=== PATIENT | female | born 1950 | race Caucasian/White ===

== ENCOUNTER → 2017-04-12 | Outpatient (CLI) | payer OTHER ==
[~2017-04-12] MED LIST: ALPRAZOLAM 0.50.5 M1 PO; ATORVASTATIN CA40 MG PO; CHANTIX1 MG PO; COMPAZINE10 MG PO; COUMADIN 5 MG TA5 M1 PO; DESYREL50 MG PO; DILTIAZEM HCL30 MG PO; ENOXAPARIN60 MG/0.6 SQ; ETODOLAC500 MG PO; FELDENE20 MG PO; FIORINAL WITH1 EACH PO; FOLIC ACID1 MG PO; FOLIC ACID20 MG PO; FOSAMAX 70 MG T70 MG PO; LASIX 20 MG TAB20 MG PO; LISINOPRIL40 MG PO; MAXZIDE-25 MG1 EACH PO; METHOTREXATE 22.5 M1 PO; METHOTREXATE 22.5 MG PO; MIRAPEX1 MG PO; NEURONTIN 300300 M1 PO; NOLVADEX20 MG PO; NORCO 10-325 T1 EACH PO; OMEPRAZOLE 20 M20 MG PO; PANTOPRAZOLE SO40 M1 PO; PENTASA500 MG PO; ROPINIROLE HCL2 M1 PO; SERTRALINE HCL50 MG PO; SIMVASTATIN40 MG PO; TIZANIDINE HCL4 M1 PO; TRAZODONE HCL100 MG PO
== END ==
LOC: ULTRA 16:13
DX: M79.604 Pain in right leg (principal); M79.89 Other specified soft tissue disorders

== ENCOUNTER 2017-09-26 13:07 | Inpatient (IN) | payer OTHER ==
[~2017-09-26] VITALS: Ht 160 cm; Wt 84.8 kg
--- NOTE | ~2017-09-26 | HC ---
[facility] [place] [address] CONSULTATION Name: ALESHIA FRANCOIS Room #: 247-P ADM IN M.R.#: [id number] Admission: 09/26/17 Attend Phys: Sebastien Myers MD, Discharge: Date of : 48 Report #: [id number] THIS REPORT FOR: //name// CC: Sebastien Myers MD [facility] Kimberley Rubio MD DATE OF SERVICE: 09/27/2017 PULMONARY CONSULTATION REFERRING PROVIDER: Sebastien Myers MD, [facility] REASON FOR CONSULTATION: Abnormal CT scan of the chest. HISTORY OF PRESENT ILLNESS: Our group was asked to see the patient in consultation while hospitalized at [facility]. A pleasant 66-year-old woman with a past pulmonary history significant for tobacco abuse, but no other pulmonary disease that she is aware of, no prior need for inhaled therapy, no chronic respiratory symptoms, and no cough, does have significant esophageal reflux that is very severe and sometimes awakens her from sleep, presented for further evaluation of her vascular disease and was found to have significant coronary artery disease with significant left main coronary artery stenosis and requiring urgent bypass surgery. A CT scan of the chest done to evaluate for other pulmonary disease may be present despite a clear x-ray did show an 18 x 12 mm infiltrative process in the posterior portion of the right lower lobe. The patient is asymptomatic without any chest pain, weight loss, cough or fever. The patient has had intermittent GI symptoms of nausea, which she attributed to gallbladder until further evaluation suggested significant coronary artery disease. No recent antibiotics. No history of recurrent pneumonias. ALLERGIES: PENICILLINS. PAST MEDICAL HISTORY: 1. Significant coronary artery disease as described. 2. Peripheral vascular disease. 3. Emphysema noted on CT, severity not quantified. The patient not requiring any medications. 4. History of aortic stenosis. 5. History of DVT. 6. Rheumatoid arthritis, has been on methotrexate for about 5 years under the care of Dr. Zaire Concepcion. 7. Hypertension. 8. Prior mastectomy. [facility] [address] [place] [address] CONSULTATION Name: ALESHIA FRANCOIS Bossman Room #: 247-P [facility] IN .R.#: [id number] Admission: 09/26/17 Attend Phys: Sebastien Myers MD, Discharge: Date of : 48 Report #: [id number] SOCIAL HISTORY: Ex-smoker, quitting about 1 year ago. Lives independently. 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 FAMILY HISTORY: Negative for any pulmonary disease, but there is significant cardiovascular disease. REVIEW OF SYSTEMS: CONSTITUTIONAL: No fever, chills or sweats. ENT: No upper respiratory congestion, some rhinorrhea noted. CARDIOVASCULAR: As described in the HPI. GASTROINTESTINAL: Significant reflux. No abdominal pain. GENITOURINARY: No dysuria, no frequency or hematuria. INTEGUMENT: Denies any rash. MUSCULOSKELETAL: History of rheumatoid arthritis seems well controlled on methotrexate. PHYSICAL EXAMINATION: VITAL SIGNS: Afebrile, pulse 70s, respiratory rate 18, blood pressure 110/46, oxygen saturation 97% on room air. GENERAL: This is a pleasant, thin, elderly woman in no distress. HEENT: Clear oropharynx, Mallampati 1 airway. No thrush. NECK: Supple, no lymphadenopathy. LUNGS: Minimal basilar crackles on inspiration. No wheezes. CARDIOVASCULAR: Heart is regular, 2/6 systolic murmur best heard at the right sternal border. ABDOMEN: Soft, no masses, nontender. EXTREMITIES: Warm with no edema. LABORATORY DATA: White blood cell count 12,000; hemoglobin 10, hematocrit 29, platelet count 358. No significant eosinophilia. Sodium 138, potassium 4.4, chloride 103, bicarbonate 27, BUN 25, creatinine 1.1, glucose 106, albumin 3.3. CT scan of the chest as described; however, also findings on CT chest did show renal masses previously suggested a cyst, but seemed to be increased on this exam with high density material within the gallbladder suggesting the sludge or stones without findings of cholecystitis. IMPRESSION: 1. Right lower lobe infiltrative process. I suspect this is inflammatory in nature given her history of severe reflux, suspect this is aspiration. As discussed with Dr. Myers in the Cardiothoracic Surgery Service, typically would follow this after a course of antibiotics with repeat imaging in 4-6 weeks; however, given the urgent need for bypass surgery would cover with antibiotics at this time and have to follow postoperatively at some point in the future, would not delay surgery for these findings. These are likely inflammatory and not malignant that is why we would pursue further surgery as [address] [address] CONSULTATION Name: ALESHIA FRANCOIS Room #: 247-P ADM IN M.R.#: [id number] Admission: 09/26/17 Attend Phys: Sebastien Myers MD, Discharge: Date of : 48 Report #: [id number] warranted and we would treat her underlying severe esophageal reflux disease, which is likely contributing to this finding. 2. Severe coronary artery disease, awaiting coronary bypass grafting. 3. History of tobacco abuse with mild chronic obstructive pulmonary disease suggested by CT. 4. Possible gallbladder disease. 5. History of peripheral vascular disease. PLAN: As outlined above. We will follow along with you. Encourage incentive spirometry as well. <ELECTRONICALLY SIGNED> By: Yash Morgan MD 09/30/17 1535 1237 1956 Yash Morgan MD /nt
--- NOTE | ~2017-09-26 | CNG ---
[facility] [place] [address] CYTO-NONGYN REPORT PROCEDURE Name: CHARLENE CHARLES Room #: 247-P ADM IN M.R.#: [id number] Admission: 09/26/17 Date of : 48 Discharge: Report #: [id number] Path Case #: [id number] CYTOPATHOLOGY REPORT COLLECTION DATE: 09/30/2017 RECEIVED DATE: 10/01/2017 SUBMITTING PHYS: Dr. Tish York OTHER PHYS: Dr. Sebastien Lay CLINICAL HISTORY: Unstable angina, Left main occlusion, CAD SPECIMEN(S) RECEIVED: A.Sputum * * * * * * * * * * * * FINAL DIAGNOSIS: A. Sputum: - No malignant cells identified. Pulmonary macrophages and rare squamous cells are present. PATHOLOGIST: Beatrice Blevins M.D. REPORT ELECTRONICALLY SIGNED BY: Beatrice Blevins M.D. DATE/TIME: 10/02/2017 14:45 * * * * * * * * * * * * GROSS PATHOLOGY: A. Sputum: The specimen is submitted unfixed, labeled "Charlene Charles". Received by the Cytology Department is two mL of cloudy colorless fluid. One ThinPrep slide was prepared. (mm 10.01.2017) PLUMBING WAREHOUSE HELPER(S): AMELIA Madrid(ASCP) INITIAL CPT CODE(S): A; 52583 Professional services performed by [facility] at [facility] [address], [place] [address] Technical services performed by [facility] at [address] [place] [address]., [address], [place] [address]. [facility] [address] [place] [address], [facility] [address] [place] [address] PHONE: [phone] [facility] [address] [address] CYTO-NONGYN REPORT PROCEDURE Name: CHARLENE CHARLES Room #: 247-P ADM IN M.R.#: [id number] Admission: 09/26/17 Date of : 48 Discharge: Report #: [id number] Path Case #: [id number] DIRECTOR: Gorge Flores M.D. * * * END OF REPORT * * *
--- NOTE | ~2017-09-26 | EKG ---
[address] [address] ELECTROCARDIOGRAM REPORT Name: ALESHIA FRANCOIS Room #: 247-P [facility] IN M.R.#: [id number] Admission: 09/26/17 Attend Phys: Sebastien Myers MD, Discharge: Date of : 48 Report #: [id number] THIS REPORT FOR: //name// [facility] Test Date: 2017-09-30 Test Time: 14:35:53 Pat Name: ALESHIA FRANCOIS Department: Room: [facility] Gender: F Chief Clinical Officer: jlambertz : 1950 Requested By: Tania Sapp Order Number: [id number] MD: Thomas Lanier Measurements Intervals [place] Rate: 79 P: 70 [place]: 187 QRS: 63 QRSD: 128 T: 53 QT: 433 QTc: 497 Interpretive Statements Sinus rhythm Atrial premature complexes Right bundle branch block Compared to ECG 03/31/2008 06:43:45 Atrial premature complex(es) now present Right bundle-branch block now present Electronically Signed On 10-01-2017 7:50:47 VESSEL BUILDER by Thomas Lanier [email or web address] <ELECTRONICALLY SIGNED> By: Thomas Lanier MD, FACC 10/01/17 0750 1435 1435 Thomas Lanier MD, [facility] /EPI
--- NOTE | ~2017-09-26 | H ---
[facility] [place] [address] HISTORY AND PHYSICAL Name: ALESHIA FRANCOIS Room #: 206-P [facility] IN M.R.#: [id number] Admission: 09/26/17 Attend Phys: Sebastien Myers MD, Discharge: 10/07/17 Date of : 48 Report #: [id number] THIS REPORT FOR: //name// CC: Sebastien Lay MD DATE OF SERVICE: 09/26/2017 HISTORY OF PRESENT ILLNESS: The patient is a 66-year-old female who I transferred here today after having cardiac catheterization performed at [facility]. She has been having some progressive chest pain and shortness of breath. It was unclear of the etiology of this. He has a history of peripheral vascular disease with an SMA and celiac stents placed in 11/2016. Saw her primary care doctor a few weeks ago, who sent her over for further evaluation regarding this recurrent chest pain. Multiple risk factors for coronary disease. She also has mild to moderate aortic valve stenosis, calculated at 1.2 cm2 a month ago. That echo Doppler report is here and also readily had in the incident system here. This was performed at [facility]. LV function is preserved. There is a minimal gradient across the aortic valve, a mean of 12 mmHg. Subsequently, taken to the Catheterization Lab today. Dr. Lay evaluated the peripheral vascular stents, which did not need any re-intervention. Cardiac catheterization revealed a high-grade calcified large tight lesion in the left main. It was difficult to differentiate this with the catheter, but eventually was noted to be large segment of calcified narrowing, probably in the 80-90% range. The other vessels were well preserved. LV function was preserved. She had chest pain with injections and then this resolved with IV Lopressor and nitro. She had a severe episode of chest pain this morning, which was at rest, which did not get relieved until she took her Cardizem. Interestingly, she has had some accelerating symptoms here. MEDICATIONS: Have been Xanax, baby aspirin, Lipitor 40, Fiorinal p.r.n. Cardizem 30 mg p.r.n., gabapentin, Wellpinit, Levsin, omeprazole, Feldene, Protonix, Compazine, Zanaflex p.r.n., trazodone at night, Maxzide 37.5/25, and Plavix 75 a day for the peripheral stent. PAST MEDICAL HISTORY: Positive for the peripheral vascular disease, documented now currently coronary disease; COPD; carotid disease, repeated today with mild irregularities. That report is on the chart. SMA bare-metal stent. Moderate celiac and CUATE disease looked at today; moderate aortic valve stenosis, asymptomatic; hypertension; hypercholesterolemia; history of DVT; rheumatoid; mastectomy; tonsillectomy; total abdominal hysterectomy. SOCIAL HISTORY: She lives independently, accompanied by a brother and sister. She is a former heavy tobacco user until recently. No children. Not . [facility] [address] [place] [address] HISTORY AND PHYSICAL Name: ALESHIA FRANCOIS Room #: 206-P [facility] IN M.R.#: [id number] Admission: 09/26/17 Attend Phys: Sebastien Myers MD, Discharge: 10/07/17 Date of : 48 Report #: [id number] FAMILY HISTORY: Mother had a stroke. Father had coronary artery disease prematurely. ALLERGIES: PENICILLIN AND AMOXICILLIN. REVIEW OF SYSTEMS: Essentially negative except for some intermittent bowel issues. LABORATORY DATA: Sodium 138, potassium 4.4, creatinine 1.1, GFR 50. Liver function tests are normal. H and H is 9.9/29.1, white count 11.8, platelets 358. Hemoglobin A1c was pending. UA looks unremarkable. Chest x-ray: No acute process. PHYSICAL EXAMINATION: GENERAL: She is pleasant, alert. She is pain free. VITAL SIGNS: Blood pressure 114/60. HEENT: Eyes reveal xanthelasmas. Pharynx is clear. NECK: Shows preserved upstrokes without JVD or bruits. LUNGS: Clear. CARDIOVASCULAR: Regular rate and rhythm, S1, S2. ABDOMEN: Soft. No HSM, abdominal bruit. EXTREMITIES: Reveal no edema. Distal pulses were intact. NEUROLOGIC: Nonfocal. SKIN: Warm and dry without xanthoma or ulcer. MUSCULOSKELETAL: No gross joint deformity. ASSESSMENT: 1. Coronary artery disease with high-grade left main disease, unstable angina (currently pain free). 2. Peripheral vascular disease with history of superior mesenteric artery stent. 3. Chronic obstructive pulmonary disease, prior tobacco use. 4. Hypertension. 5. Hypercholesterolemia. 6. Rheumatoid. 7. Recent cataract surgery. 8. Mild to moderate aortic valve stenosis. RECOMMENDATIONS AND PLAN: CV surgical consultation. Carotid Dopplers, minimal plaquing, repeated today. was done one month ago at [facility] that reported also on the chart. CV Surgery is having patient going to hold off on surgery due to Plavix usage and plan on operation after the weekend. She is pain free, on no nitrites right now. She had severe headache from nitro that [facility] [address] [place] [address] HISTORY AND PHYSICAL Name: ALESHIA FRANCOIS Room #: 206-P DIS IN .R.#: [id number] Admission: 09/26/17 Attend Phys: Sebastien Myers MD, Discharge: 10/07/17 Date of : 48 Report #: [id number] was given earlier. We will continue with beta-adrian and statin. Holding aspirin and Plavix. There are ophthalmologic eye drops. <ELECTRONICALLY SIGNED> By: Sebastien Myers MD, FACC 10/14/17 1427 1934 35 Sebastien Myers MD, FACC /nt
--- NOTE | ~2017-09-26 | EKG ---
[place] [address] [facility] [place] [address] ELECTROCARDIOGRAM REPORT Name: ALESSANDROALESHIA Keita Room #: 247- ADM IN M.R.#: [id number] Admission: 09/26/17 Attend Phys: Sebastien Myers MD, Discharge: Date of : 48 Report #: [id number] THIS REPORT FOR: //name// [facility] Test Date: 2017-10-01 Test Time: 06:15:25 Pat Name: ALESHIA FRANCOIS Department: Room: [facility] Gender: F Etcher Enameling: BHARATH : 1950 Requested By: Tania Sapp Order Number: [id number] MD: Thomas Lanier Measurements Intervals [place] Rate: 91 P: 20 IA: 135 QRS: 15 QRSD: 82 T: 65 QT: 369 QTc: 455 Interpretive Statements Sinus rhythm Diffuse ST elevation consider postoperative pericarditis Compared to ECG 03/31/2008 06:43:45 ST segment abnormality is now present Electronically Signed On 10-01-2017 7:59:10 LONG WALL MINING MACHINE TENDER by Thomas Lanier [email or web address] <ELECTRONICALLY SIGNED> By: Thomas Lanier MD, [facility] 10/01/17 0759 0615 0615 Thomas Lanier MD, [facility] /EPI
[2017-09-26 15:04] VITALS: BP 114/51
[2017-09-26 17:45] LABS: ABSOLUTE NEUTROPHILS 9.4 thou/uL (1.4-8.2); BASOPHILS 0.7 % (0.0-2.0); EOSINOPHILS 1.7 % (0.0-3.0); HEMATOCRIT 29.1 % (37.0-47.0); HEMOGLOBIN 9.9 gm/dL (12.0-15.0); LYMPHOCYTES 9.9 % (24.0-44.0); MCH 33.9 pg (26.0-34.0); MCV 99.6 fL (80.0-100.0); MONOCYTES 7.9 % (1.0-8.0); PLATELET COUNT 358 thou/uL (150-400); POLYS 79.8 % (36.0-66.0); RBC 2.92 mil/uL (4.20-5.00); RDW 14.6 % (10.5-14.5); WBC 11.8 thou/uL (4.0-11.0)
[2017-09-26 17:51] LABS: CALCIUM 9.3 mg/dL (8.5-10.1); CREATININE 1.1 mg/dL (0.6-1.0); POTASSIUM 4.4 mmol/L (3.5-5.1)
[2017-09-26 17:57] LABS: ALBUMIN 3.3 g/dL (3.4-5.0); TOTAL BILIRUBIN 0.2 mg/dL (<0.1-1.0); TOTAL PROTEIN 6.8 g/dL (6.4-8.2)
[2017-09-26 18:11] LABS: URINE BILIRUBIN NEGATIVE (Negative); URINE BLOOD 3+ (Negative); URINE CLARITY CLEAR; URINE COLOR YELLOW; URINE GLUCOSE-RANDOM* NEGATIVE (Negative); URINE KETONES NEGATIVE (Negative); URINE LEUKOCYTES-REFLEX NEGATIVE (Negative); URINE NITRITE-REFLEX NEGATIVE (Negative); URINE PROTEIN (DIPSTICK) NEGATIVE (Negative); URINE SPECIFIC GRAVITY <= 1.005 (1.005-1.035); URINE UROBILINOGEN 0.2 E.U./dl (0.2-1.0)
[2017-09-26 18:18] LABS: SQUAMOUS 0-3 Few /LPF (0-3); URINE WBC-REFLEX 0-5 Rare /HPF (0-5)
[2017-09-26 18:19] LABS: BACTERIA-REFLEX None Seen /HPF (None Seen); CASTS None Seen /LPF (None Seen); CRYSTALS None Seen /LPF (None Seen); URINE RBC 0-2 Rare /HPF (0-2)
[2017-09-26 20:05] VITALS: BP 126/64
[2017-09-26 23:20] VITALS: BP 115/55
[2017-09-27 04:11] LABS: GLYCOHEMOGLOBIN (HGB A1C) 5.6 % (4.8-5.6)
[2017-09-27 05:08] VITALS: BP 119/62
[2017-09-27 07:22] VITALS: BP 114/50
[2017-09-27 11:23] VITALS: BP 110/46
[2017-09-27 15:19] VITALS: BP 118/42
[2017-09-27 19:18] VITALS: BP 114/54
[2017-09-28 04:08] VITALS: BP 111/50
[2017-09-28 07:17] VITALS: BP 111/50
[2017-09-28 11:06] VITALS: BP 106/49
[2017-09-28 15:30] VITALS: BP 107/52
[2017-09-28 19:09] VITALS: BP 112/59
[2017-09-29 04:16] VITALS: BP 108/50
[2017-09-29 08:55] VITALS: BP 104/48
[2017-09-29 12:22] VITALS: BP 109/52
[2017-09-29 21:08] VITALS: BP 122/68
[2017-09-30] VITALS (7 sets, daily range): BP systolic 83–138; BP diastolic 49–71
[2017-09-30 06:42] LABS: HEMATOCRIT 30.9 % (37.0-47.0); HEMOGLOBIN 10.6 gm/dL (12.0-15.0); MCH 33.8 pg (26.0-34.0); MCHC 34.3 g/dL (28.0-37.0); MCV 98.5 fL (80.0-100.0); RBC 3.14 mil/uL (4.20-5.00); RDW 14.5 % (10.5-14.5); WBC 10.4 thou/uL (4.0-11.0)
[2017-09-30 07:06] LABS: APTT 26.1 Seconds (24.5-32.8); PROTIME 10.1 Seconds (9.3-11.4)
[2017-09-30 07:16] LABS: ALBUMIN 3.6 g/dL (3.4-5.0); CALCIUM 9.2 mg/dL (8.5-10.1); CREATININE 1.2 mg/dL (0.6-1.0); MAGNESIUM 2.1 mg/dL (1.8-2.4); TOTAL BILIRUBIN 0.4 mg/dL (<0.1-1.0); TOTAL PROTEIN 7.6 g/dL (6.4-8.2)
[2017-09-30 12:36] LABS: RBC 1.91 mil/uL (4.20-5.00)
[2017-09-30 12:37] LABS: MCHC 33.2 g/dL (28.0-37.0); MCV 99.4 fL (80.0-100.0); RDW 14.3 % (10.5-14.5); WBC 14.7 thou/uL (4.0-11.0)
[2017-09-30 12:40] LABS: HEMOGLOBIN 6.3 gm/dL (12.0-15.0)
[2017-09-30 12:50] LABS: FIBRINOGEN 202.9 mg/dL (210-360); INR 1.2; PROTIME 12.6 Seconds (9.3-11.4)
[2017-09-30 13:08] LABS: POC BE 1 mmol/L (-2.0 to +3.0); POC CA IONIZED 6.6 mg/dL (4.5-5.3); POC GLUCOSE 130 mg/dL (70-99); POC HCO3 24.3 mmol/L (22.0-26.0); POC HEMOGLOBIN 6.1 g/dL (12.0-15.0); POC POTASSIUM 4.4 mmol/L (3.5-5.1); POC SODIUM 137 mmol/L (136-145); POC pCO2 34.1 mmHg (35.0-45.0); POC pH 7.461 (7.360-7.450)
[2017-09-30 13:08] LABS: POC BE 1 mmol/L (-2.0 to +3.0); POC CA IONIZED 6.6 mg/dL (4.5-5.3); POC GLUCOSE 129 mg/dL (70-99); POC HCO3 25.2 mmol/L (22.0-26.0); POC HEMOGLOBIN 5.8 g/dL (12.0-15.0); POC POTASSIUM 4.2 mmol/L (3.5-5.1); POC SODIUM 134 mmol/L (136-145); POC pCO2 36.5 mmHg (35.0-45.0); POC pH 7.447 (7.360-7.450)
[2017-09-30 13:08] LABS: POC BE 0 mmol/L (-2.0 to +3.0); POC CA IONIZED 4.5 mg/dL (4.5-5.3); POC GLUCOSE 103 mg/dL (70-99); POC HCO3 24.8 mmol/L (22.0-26.0); POC HEMOGLOBIN 8.8 g/dL (12.0-15.0); POC SODIUM 135 mmol/L (136-145); POC pCO2 37.6 mmHg (35.0-45.0); POC pH 7.428 (7.360-7.450)
[2017-09-30 13:08] LABS: POC BE -1 mmol/L (-2.0 to +3.0); POC CA IONIZED 5.9 mg/dL (4.5-5.3); POC GLUCOSE 90 mg/dL (70-99); POC HCO3 23.7 mmol/L (22.0-26.0); POC HEMOGLOBIN 6.8 g/dL (12.0-15.0); POC POTASSIUM 3.7 mmol/L (3.5-5.1); POC SODIUM 136 mmol/L (136-145); POC pCO2 37.1 mmHg (35.0-45.0); POC pH 7.414 (7.360-7.450)
[2017-09-30 13:08] LABS: POC BE -6 mmol/L (-2.0 to +3.0); POC CA IONIZED 3.8 mg/dL (4.5-5.3); POC GLUCOSE 135 mg/dL (70-99); POC HCO3 19.7 mmol/L (22.0-26.0); POC HEMOGLOBIN 7.5 g/dL (12.0-15.0); POC POTASSIUM 5.2 mmol/L (3.5-5.1); POC SODIUM 133 mmol/L (136-145); POC pH 7.372 (7.360-7.450)
[2017-09-30 13:08] LABS: POC BE -2 mmol/L (-2.0 to +3.0); POC CA IONIZED 3.7 mg/dL (4.5-5.3); POC GLUCOSE 139 mg/dL (70-99); POC HCO3 22.9 mmol/L (22.0-26.0); POC HEMOGLOBIN 6.5 g/dL (12.0-15.0); POC POTASSIUM 5.1 mmol/L (3.5-5.1); POC SODIUM 131 mmol/L (136-145); POC pH 7.399 (7.360-7.450)
[2017-09-30 13:08] LABS: POC BE 0 mmol/L (-2.0 to +3.0); POC CA IONIZED 4.6 mg/dL (4.5-5.3); POC GLUCOSE 119 mg/dL (70-99); POC HCO3 24.5 mmol/L (22.0-26.0); POC HEMOGLOBIN 7.8 g/dL (12.0-15.0); POC POTASSIUM 3.7 mmol/L (3.5-5.1); POC SODIUM 136 mmol/L (136-145); POC pCO2 36.8 mmHg (35.0-45.0); POC pH 7.432 (7.360-7.450)
[2017-09-30 13:08] LABS: POC BE -2 mmol/L (-2.0 to +3.0); POC CA IONIZED 4.1 mg/dL (4.5-5.3); POC GLUCOSE 145 mg/dL (70-99); POC HCO3 23.6 mmol/L (22.0-26.0); POC HEMOGLOBIN 6.8 g/dL (12.0-15.0); POC POTASSIUM 4.4 mmol/L (3.5-5.1); POC SODIUM 135 mmol/L (136-145); POC pCO2 44.4 mmHg (35.0-45.0); POC pH 7.333 (7.360-7.450)
[2017-09-30 13:56] LABS: HEMATOCRIT 23.5 % (37.0-47.0); HEMOGLOBIN 7.8 gm/dL (12.0-15.0); MCH 32.9 pg (26.0-34.0); MCHC 33.2 g/dL (28.0-37.0); RBC 2.37 mil/uL (4.20-5.00); RDW 14.3 % (10.5-14.5); WBC 21.1 thou/uL (4.0-11.0)
[2017-09-30 14:07] LABS: APTT 28.8 Seconds (24.5-32.8); INR 1.1; PROTIME 11.6 Seconds (9.3-11.4)
[2017-09-30 14:08] LABS: CALCIUM 9.9 mg/dL (8.5-10.1); CREATININE 1.1 mg/dL (0.6-1.0); MAGNESIUM 2.8 mg/dL (1.8-2.4); POTASSIUM 3.9 mmol/L (3.5-5.1)
[2017-09-30 15:13] LABS: BE(vivo) -4.1 mmol/L (-2 to +3); HCO3 21.3 mmol/L (22.0-26.0); PCO2 40.2 mmHg (35.0-45.0); PO2 123.3 mmHg (80.0-100.0); pH 7.342 (7.360-7.450); sO2 98.3 % (92.0-98.0)
[2017-09-30 17:49] LABS: BE(vivo) -4.2 mmol/L (-2 to +3); HCO3 19.9 mmol/L (22.0-26.0); PCO2 33.3 mmHg (35.0-45.0); PO2 141.9 mmHg (80.0-100.0); pH 7.395 (7.360-7.450); sO2 98.8 % (92.0-98.0)
[2017-09-30 18:21] LABS: BE(vivo) -4.7 mmol/L (-2 to +3); HCO3 20.4 mmol/L (22.0-26.0); PO2 127.8 mmHg (80.0-100.0); pH 7.348 (7.360-7.450); sO2 98.4 % (92.0-98.0)
[2017-09-30 20:21] LABS: BE(vivo) -3.7 mmol/L (-2 to +3); HCO3 21.6 mmol/L (22.0-26.0); PCO2 40.3 mmHg (35.0-45.0); PO2 94.1 mmHg (80.0-100.0); pH 7.348 (7.360-7.450); sO2 96.9 % (92.0-98.0)
[2017-10-01] VITALS (16 sets, daily range): BP systolic 87–112; BP diastolic 37–65
[2017-10-01 05:54] LABS: HEMATOCRIT 28.8 % (37.0-47.0); HEMOGLOBIN 9.6 gm/dL (12.0-15.0); MCH 32.4 pg (26.0-34.0); MCHC 33.3 g/dL (28.0-37.0); MCV 97.2 fL (80.0-100.0); RBC 2.96 mil/uL (4.20-5.00); RDW 15.3 % (10.5-14.5); WBC 20.4 thou/uL (4.0-11.0)
[2017-10-01 05:58] LABS: CALCIUM 9.5 mg/dL (8.5-10.1); CREATININE 1.2 mg/dL (0.6-1.0); MAGNESIUM 2.3 mg/dL (1.8-2.4); POTASSIUM 4.3 mmol/L (3.5-5.1)
[2017-10-02] VITALS (22 sets, daily range): BP systolic 74–109; BP diastolic 46–65
[2017-10-02 04:28] LABS: CALCIUM 8.3 mg/dL (8.5-10.1); CREATININE 1.2 mg/dL (0.6-1.0); POTASSIUM 4.3 mmol/L (3.5-5.1)
[2017-10-02 05:17] LABS: HEMATOCRIT 25.2 % (37.0-47.0); HEMOGLOBIN 8.4 gm/dL (12.0-15.0)
[2017-10-03] VITALS (9 sets, daily range): BP systolic 94–117; BP diastolic 42–81
[2017-10-03 05:36] LABS: HEMATOCRIT 22.6 % (37.0-47.0); HEMOGLOBIN 7.6 gm/dL (12.0-15.0)
[2017-10-03 05:55] LABS: CALCIUM 7.6 mg/dL (8.5-10.1); CREATININE 0.9 mg/dL (0.6-1.0); MAGNESIUM 1.8 mg/dL (1.8-2.4); POTASSIUM 3.8 mmol/L (3.5-5.1)
[2017-10-04 00:01] VITALS: BP 112/61
[2017-10-04 04:41] VITALS: BP 99/51
[2017-10-04 04:51] LABS: HEMATOCRIT 25.4 % (37.0-47.0); HEMOGLOBIN 8.8 gm/dL (12.0-15.0)
[2017-10-04 05:08] LABS: CALCIUM 8.1 mg/dL (8.5-10.1); POTASSIUM 3.9 mmol/L (3.5-5.1)
[2017-10-04] MEDS ORDERED: ASPIRIN EC325 M1 PO (11:45)
[2017-10-04 13:25] VITALS: BP 114/55
[2017-10-04 16:31] VITALS: BP 132/55
[2017-10-05 04:22] VITALS: BP 96/51
[2017-10-05 07:29] VITALS: BP 90/59
[2017-10-05 11:10] VITALS: BP 105/53
[2017-10-05 15:09] VITALS: BP 113/58
[2017-10-05 20:15] VITALS: BP 110/52
[2017-10-06 04:17] VITALS: BP 102/58
[2017-10-06 07:40] VITALS: BP 109/57
[2017-10-06 11:40] VITALS: BP 117/61
[2017-10-06 16:05] VITALS: BP 89/48
[2017-10-06 19:59] VITALS: BP 119/53
[2017-10-07 03:45] VITALS: BP 119/75
[2017-10-07 08:00] VITALS: BP 118/59
[2017-10-07] MEDS ORDERED: LOPRESSOR25 PO (11:20)
[2017-10-07] MEDS ORDERED: PACERONE 200 M200 M1 PO (11:20)
[2017-10-07 12:00] VITALS: BP 116/44
[2017-10-07 15:13] VITALS: BP 114/55
== END 2017-10-07 17:57 | disposition home health service (06) | DRG 235 ==
LOC: 2N 13:07 → TBA 09-30 07:24 → ICU 09-30 13:58 → 2N 10-03 13:29 → ENTRNSPT 10-07 17:20 → 2N 10-07 17:57
PROVIDERS: Internal Medicine Cardiovascular Disease; Internal Medicine Pulmonary Disease; Nurse Practitioner; Thoracic Surgery (Cardiothoracic Vascular Surgery)
PROC: 02100Z9 Bypass Coronary Artery, One Artery from Left Internal Mammary, Open Approach (ICD-10-PCS; principal; 2017-09-30)
PROC: 021009W Bypass Coronary Artery, One Artery from Aorta with Autologous Venous Tissue, Open Approach (ICD-10-PCS; principal; 2017-09-30)
PROC: 30233N1 Transfusion of Nonautologous Red Blood Cells into Peripheral Vein, Percutaneous Approach (ICD-10-PCS; 2017-09-30)
PROC: 03BC0ZZ Excision of Left Radial Artery, Open Approach (ICD-10-PCS; 2017-09-30)
PROC: 5A1221Z Performance of Cardiac Output, Continuous (ICD-10-PCS; 2017-09-30)
DX: I25.110 Atherosclerotic heart disease of native coronary artery with unstable angina pectoris (principal); J69.0 Pneumonitis due to inhalation of food and vomit; D62 Acute posthemorrhagic anemia; J98.11 Atelectasis; J90 Pleural effusion, not elsewhere classified; I73.9 Peripheral vascular disease, unspecified; M06.9 Rheumatoid arthritis, unspecified; J43.9 Emphysema, unspecified; I10 Essential (primary) hypertension; E78.00 Pure hypercholesterolemia, unspecified; I35.0 Nonrheumatic aortic (valve) stenosis; E78.5 Hyperlipidemia, unspecified; E66.9 Obesity, unspecified; I65.29 Occlusion and stenosis of unspecified carotid artery; D64.9 Anemia, unspecified; K21.9 Gastro-esophageal reflux disease without esophagitis; R73.9 Hyperglycemia, unspecified; I48.91 Unspecified atrial fibrillation; Z86.718 Personal history of other venous thrombosis and embolism; Z87.891 Personal history of nicotine dependence; Z90.710 Acquired absence of both cervix and uterus; Z88.1 Allergy status to other antibiotic agents; Z98.42 Cataract extraction status, left eye; Z90.11 Acquired absence of right breast and nipple; Z88.0 Allergy status to penicillin; Z95.5 Presence of coronary angioplasty implant and graft; Z79.899 Other long term (current) drug therapy; Z82.49 Family history of ischemic heart disease and other diseases of the circulatory system; Z82.3 Family history of stroke; Z68.33 Body mass index [BMI] 33.0-33.9, adult
CPT/HCPCS: 10078; 10081; 10797; 47000; 47001; 47002; 47297; 48888; 50010; 50249; 50409; 50456; 50497; 50668; 51301; 52131; 52190; 52259; 52314; 53327; 53358; 54118; 56524; 56525; 56526; 56527; 56528; 56529; 56531; 56534; 56639; 56668; 56760; 56898; 57093; 62110; 62950; 64029; 65002; 65003; 65020; 65043; 65045; 65090; 83006

== ENCOUNTER → 2017-10-23 | Outpatient (CLI) | payer OTHER ==
[~2017-10-23] MED LIST changes: +ASPIRIN EC325 M1 PO; +DEMADEX20 MG PO; +EFFIENT10 MG PO; +LOPRESSOR25 PO; +PACERONE 200 M200 M1 PO
== END ==
LOC: RAD 12:29
DX: Z95.1 Presence of aortocoronary bypass graft (principal)

== ENCOUNTER 2018-03-05 06:32 | Observation (INO) | payer OTHER ==
[~2018-03-05] VITALS: Ht 162.6 cm; Wt 86.8 kg
--- NOTE | ~2018-03-05 | D ---
[facility] [place] [address] DISCHARGE SUMMARY Name: ALESHIA FRANCOIS Room #: 211-P [facility] M.R.#: [id number] Admission: 03/05/18 Attend Phys: Sebastien Myers MD, Discharge: Date of : 48 Report #: [id number] THIS REPORT FOR: //name// CC: Sebastien Lay MD HOSPITAL COURSE: The patient is a 67-year-old female who is readmitted for intervention into a left main. Had a failed FLORES to LAD graft and a failed radial graft to the OM that surgery was 2 years previously. These were not amenable to intervention. The FLORES became atretic and had a high-grade anastomotic lesion. Significant calcification of the left main. Dr. Mays performed a Rotablator procedure for the initial layer of calcium and then dilated and stented with a 3.5 medicated stent that was taken up to approaching 4.0 mm in size. An excellent result was obtained on that left main. The mid LAD lesion was then dilated and stented and that was a site of the anastomosis, which may have been a stitch, difficult to know and placement of a 2.25 x 14 Resolute drug-eluting stent, postdilated to 2.4 mm in size. The initial Resolute in the left main was a 3.5 x 12 mm and that was postdilated with a 3.8-3.9. Bivalirudin was utilized for that. She will be discharged on aspirin and prasugrel generically, gabapentin 300 mg at bedtime, Mirapex, trazodone at bedtime, Protonix 40 mg, folic acid, tizanidine, metoprolol tartrate 25 mg b.i.d., torsemide 20 mg a day, prasugrel 10 mg a day . No lifting for 48 hours. No lying in tub, Jacuzzi or brito for a week. No MRI or dental work for 3 months. Followup is scheduled in 3 months in the office. Expect significant improvement in her symptoms. DISCHARGE DIAGNOSES: 1. Coronary artery disease with successful Rotablator, stent procedure to a highly calcified left main due to failed prior grafts, moderate disease remain in the [place] circ and right coronary artery. 2. Hypertension. 3. Hypercholesterolemia. 4. History of recurrent deep venous thrombosis. 5. Rheumatoid arthritis. Thank you for asking me to assist in the care of this patient. By: 0912 0931 Sebastien Myers MD, FACC /nt
--- NOTE | ~2018-03-05 | EKG ---
[address] [address] ELECTROCARDIOGRAM REPORT Name: ALESHIA FRANCOIS Room #: [address] [place] [address]#: [id number] Admission: 03/05/18 Attend Phys: Sebastien Myers MD, Discharge: 03/06/18 Date of : 48 Report #: [id number] THIS REPORT FOR: //name// [facility] Test Date: 2018-03-06 Test Time: 06:23:11 Pat Name: ALESHIA FRANCOIS Department: Room: [facility] Gender: F Medical Legal Investigator: : 1950 Requested By: Lee Mays Order Number: [id number] MD: Thomas Lanier Measurements Intervals [place] Rate: 61 P: 46 [place]: 216 QRS: 39 QRSD: 98 T: 75 QT: 440 QTc: 444 Interpretive Statements Sinus rhythm Borderline prolonged VA interval Baseline wander in lead(s) V6 Compared to ECG 03/05/2018 07:01:47 No significant changes Electronically Signed On 03-07-2018 8:44:08 CDT by Thomas Lanier [email or web address] <ELECTRONICALLY SIGNED> By: Thomas Lanier MD, [facility] 03/07/18 0844 0623 0623 Thomas Lanier MD, [facility] /EPI
--- NOTE | ~2018-03-05 | EKG ---
[address] [address] ELECTROCARDIOGRAM REPORT Name: ALESHIA FRANCOIS Room #: [facility]#: [id number] Admission: 03/05/18 Attend Phys: Sebastien Myers MD, Discharge: Date of : 48 Report #: [id number] THIS REPORT FOR: //name// [facility] Test Date: 2018-03-05 Test Time: 07:01:47 Pat Name: ALESHIA FRANCOIS Department: Room: Gender: F Eyeglass Assembler: : 1950 Requested By: Sebastien Myers Order Number: [id number] MD: Thomas Lanier Measurements Intervals [place] Rate: 75 P: 68 LA: 218 QRS: 39 QRSD: 98 T: 56 QT: 410 QTc: 458 Interpretive Statements Sinus rhythm Borderline prolonged [place] interval Baseline wander in lead(s) V5 Compared to ECG 10/01/2017 06:15:25 ST (T wave) deviation no longer present Electronically Signed On 03-05-2018 7:39:49 CDT by Thomas Lanier [email or web address] <ELECTRONICALLY SIGNED> By: Thomas Lanier MD, [facility] 03/05/18 0739 0 0 Thomas Lanier MD, [facility] /EPI
--- NOTE | ~2018-03-05 | EKG ---
[address] [address] ELECTROCARDIOGRAM REPORT Name: ALESSANDROALESHIA Keita Room #: [address] [place] [address]#: [id number] Admission: 03/05/18 Attend Phys: Sebastien Myers MD, Discharge: 03/06/18 Date of : 48 Report #: [id number] THIS REPORT FOR: //name// [facility] Test Date: 2018-03-05 Test Time: 11:16:50 Pat Name: ALESHIA FRANCOIS Department: Room: [facility] Gender: F Hoister: BHARATH : 1950 Requested By: Lee Mays Order Number: [id number] MD: Thomas Lanier Measurements Intervals [place] Rate: 70 P: 65 ID: 232 QRS: 45 QRSD: 99 T: 45 QT: 414 QTc: 447 Interpretive Statements Sinus rhythm Prolonged ID interval Compared to ECG 03/05/2018 07:01:47 No significant changes Electronically Signed On 03-07-2018 8:21:33 CDT by Thomas Lanier [email or web address] <ELECTRONICALLY SIGNED> By: Thomas Lanier MD, [facility] 07/820 15 15 Thomas Lanier MD, [facility] /EPI
--- NOTE | ~2018-03-05 | CATHLAB ---
[facility] [place] [address] INVASIVE PROCEDURE REPORT Name: ALESSANDROALESHIA Room #: 211-P [facility]#: [id number] Admission: 03/05/18 Attend Phys: Sebastien Myers, Discharge: Date of : 48 Date of Service: 03/05/18 1429 Report #: [id number] THIS REPORT FOR: //name// APPROVED REPORT Study performed: 03/05/2018 07:32:56 Patient Details Patient Status: Out-Patient Room #: The patient is a 67 year-old female Event Personnel Lee Mays Wet Process Miller Head, Mau Gonzalez RN, Mimi Kelly RTR, Alber Mesa David Monitor Procedures Performed Atherectomy w/wo Plasty Sgl LAD 1091989 ATHSINGLE INDRA Place w/wo Plasty Single Left Main 333826 Indication Dyspnea, Unstable angina , Positive stress test, Chest pain Risk Factors Hypercholesterolemia, Coronary Artery DiseaseHypertension Previous Procedures/Diagnoses Previous CABG, History of recent CABG less than one year. Presents with a severe occlusion of the distal anastomotic site of the FLORES graft to the mid LAD. The free radial conduit to the OM vessel is completely occluded. Procedure Narrative The Right Groin^ was infiltrated with 1% Lidocaine subcutaneous anesthesia. A PINNACLE 7FR Sheath #[id number] sheath was inserted into the RFA^. Coronary angiography was performed using coronary diagnostic catheters. The left coronary system was accessed and visualized with a VISTA 6FR XB 3 #[id number] catheter. The patient tolerated the procedure well and there were no complications associated with the procedure. Intraoperative Conscious Sedation Sedation start time: 8.23 Case end Time: 10.15 Fentanyl 150 mcg Versed 3 mg [facility] [place] [address] INVASIVE PROCEDURE REPORT Name: ALESHIA FRANCOIS Bossman Room #: 211-P [facility]#: [id number] Admission: 03/05/18 Attend Phys: Sebastien Myers, Discharge: Date of : 48 Date of Service: 03/05/18 1429 Report #: [id number] Fluoro Time: 25.57 minutes Dose: DAP 79637 cGycm2 2867 mGy Contrast Type and Amount: Visipaque 270 ml Diagnostic Cath Left Main Severe, eccentric 70-80% occlusion in the proximal left main artery with calcification. LAD Severe focal stenosis, 90% in the mid LAD segment, at the site of the anastomosis from the mammary graft. IVUS A Guide Catheter was used to engage the VISTA 6FR XB 3 #[id number] ostium. A Luge Wire .014 x 182CM #[id number] was used. IVUS Findings Euphora RX 2.0 x12 #727057 Hemodynamics The aortic pressure is 130/63 mmHg with a mean of 88 mmHg. PCI Technique Lesion Anticoagulation was achieved with Angiomax. Patient was preloaded with Effient. Percutaneous coronary intervention was performed on the proximal LM artery. The lesion stenosis prior to intervention was 80% with MARY LOU 3 flow. A VISTA 6FR XB 3 #863237 Guide Catheter was used to engage the ostium. A Luge Wire .014 x 182CM #[id number] Interventional Guidewire was used to cross the lesion. BALLOON DILATION Rotational atherectomy performed - 1.5mm Rotalink, 1st pass 15 sec, 2nd pass 23sec,3rd pass 24sec STENT DEPLOYMENT A drug-eluting stent RESOLUTE RX 3.5 X 12 #[id number] was inserted and inflated up to 14.00atm for 18seconds. Additional Inflation: 18.00atm for 11seconds. POST STENT DEPLOYMENT BALLOON DILATION A Balloon catheter TREK NC RX 3.75 X 12 #[id number] was inserted and inflated up to 20.00atm for 15seconds. Final angiography reveals 5 % stenosis with MARY LOU 3 flow. PCI Technique Lesion A VISTA 6FR XB 3 #394562 Guide Catheter was used to engage the ostium. A Luge Wire .014 x 182CM #[id number] Interventional Guidewire was [facility] [address] [place] [address] INVASIVE PROCEDURE REPORT Name: ADILSON FRANCOISYCE Bossman Room #: 211-P [facility] ..#: [id number] Admission: 03/05/18 Attend Phys: Sebastien Myers, Discharge: Date of : 48 Date of Service: 03/05/18 1429 Report #: [id number] used to cross the lesion. BALLOON DILATION A Balloon catheter Euphora RX 2.0 x12 #[id number] was inserted and inflated up to 8atm for 16seconds. Additional Inflation: 8atm for 11seconds. STENT DEPLOYMENT A drug-eluting stent RESOLUTE RX 2.25 X 14 #[id number] was inserted and inflated up to 9atm for 18seconds. POST STENT DEPLOYMENT BALLOON DILATION A Balloon catheter Euphora NC RX 2.25 x 8 #[id number] was inserted and inflated up to 24atm for 16seconds. PCI Technique Lesion 2 Percutaneous Coronary Intervention was performed on the mid left anterior descending artery segment. Patient was preloaded with Effient. The lesion stenosis prior to intervention was 90% with MARY LOU 2 flow. A VISTA 6FR XB 3 #006813 Guide Catheter was used to engage the LCA ostium. Balloon Dilation A Balloon catheter Euphora RX 2.0 x12 #[id number] was inserted and inflated up to 8.00atm for 16seconds. Stent Deployment A drug-eluting stent RESOLUTE RX 2.25 X 14 #[id number] was inserted and inflated up to 9.00atm for 18seconds. Post Stent Deployment Balloon Dilation A Balloon catheter Euphora NC RX 2.25 x 8 #[id number] was inserted and inflated up to 24.00atm for 16seconds. Final angiography reveals 0 % stenosis with MARY LOU 3 flow. Conclusion 1. Successful rotational atherectomy and placement of a drug-eluting stent into the severe stenosis in the proximal left main artery. 2. Successful insertion of a drug-eluting stent into the mid LAD segment. 3. Severe occlusion at the distal anastomotic site of the mammary graft to the mid LAD. [facility] [address] [place] [address] INVASIVE PROCEDURE REPORT Name: ALESHIA FRANCOIS Room #: 211-P [facility] M.R.#: [id number] Admission: 03/05/18 Attend Phys: Sebastien Myers, Discharge: Date of : 48 Date of Service: 03/05/18 1429 Report #: [id number] 4. Occluded free radial conduit to the OM vessel. 5. Recommend dual antiplatelet therapy. <ELECTRONICALLY SIGNED> By: Lee Mays MD 03/05/18 1429 28 1429 Lee Mays MD /INF
[~2018-03-05 06:32] MED LIST changes: -DEMADEX20 MG PO; -EFFIENT10 MG PO
[2018-03-05] MEDS ORDERED: DEMADEX20 MG PO (07:02)
[2018-03-05 07:09] VITALS: BP 107/48
[2018-03-05 15:46] VITALS: BP 120/59
[2018-03-05 20:00] VITALS: BP 107/54
[2018-03-06 00:43] VITALS: BP 107/52
[2018-03-06 04:36] VITALS: BP 100/47
[2018-03-06 04:55] LABS: ALBUMIN 2.9 g/dL (3.4-5.0); CALCIUM 8.3 mg/dL (8.5-10.1); CREATININE 1.1 mg/dL (0.6-1.0); POTASSIUM 3.4 mmol/L (3.5-5.1); TOTAL BILIRUBIN 0.4 mg/dL (<0.1-1.0); TOTAL PROTEIN 6.5 g/dL (6.4-8.2)
[2018-03-06 05:13] LABS: HEMATOCRIT 27.7 % (37.0-47.0); HEMOGLOBIN 9.7 gm/dL (12.0-15.0); MCH 35.3 pg (26.0-34.0); MCHC 35.2 g/dL (28.0-37.0); MCV 100.2 fL (80.0-100.0); RBC 2.76 mil/uL (4.20-5.00); RDW 13.5 % (10.5-14.5); WBC 8.3 thou/uL (4.0-11.0)
[2018-03-06 05:29] LABS: TROPONIN-I 0.81 ng/mL (<0.06)
[2018-03-06] MEDS ORDERED: EFFIENT10 MG PO (08:07)
[2018-03-06] MEDS ORDERED: ASPIRIN EC325 M1 PO (08:07)
[2018-03-06 08:32] VITALS: BP 119/52
[2018-03-06 10:14] VITALS: BP 119/52
== END 2018-03-06 10:30 | disposition home or self-care (01) ==
LOC: CATH 06:32 → 2N 06:49 → CATH 12:43 → ENTRNSPT 03-06 10:21 → EDTRNSPTSTS 03-06 10:22 → 2N 03-06 10:30
PROVIDERS: Internal Medicine Cardiovascular Disease
DX: I25.10 Atherosclerotic heart disease of native coronary artery without angina pectoris (principal); E11.42 Type 2 diabetes mellitus with diabetic polyneuropathy; E11.51 Type 2 diabetes mellitus with diabetic peripheral angiopathy without gangrene; I10 Essential (primary) hypertension; E78.00 Pure hypercholesterolemia, unspecified; I70.0 Atherosclerosis of aorta; J44.9 Chronic obstructive pulmonary disease, unspecified; I48.91 Unspecified atrial fibrillation; I65.23 Occlusion and stenosis of bilateral carotid arteries; M06.9 Rheumatoid arthritis, unspecified; R53.83 Other fatigue; R94.39 Abnormal result of other cardiovascular function study; Z87.891 Personal history of nicotine dependence; Z90.49 Acquired absence of other specified parts of digestive tract; Z90.710 Acquired absence of both cervix and uterus; Z72.89 Other problems related to lifestyle; Z90.11 Acquired absence of right breast and nipple; Z86.718 Personal history of other venous thrombosis and embolism; Z95.5 Presence of coronary angioplasty implant and graft